=== PATIENT | male | born 1965 | race Caucasian/White ===

== ENCOUNTER 2017-08-28 10:14 | Emergency (ER) | payer SELFPAY ==
[2017-08-28 10:25] VITALS: BMI 31.5
--- NOTE | 2017-08-28 10:31 | DR.MBACK ---
HPI - Time Seen Time seen: 10:27 - PCP Primary Care Physician: SIMI Bowens SERVICE DESK TECHNICIAN - Complaint Chief Complaint Doctors Comments: He states that he poain radiates to the right inguinal area to testes. The claude is right flank. Her denies fever, vomiting or trauma Chief Complaint:: PT C/O RIGHT BACK PAIN FOR THE PAST FEW DAYS THAT IS WORSE TODAY ,,, " REALLY BAD PAIN".. Self Treatment fo Chief Complaint: XANAX, TYLENOL - Source History Provided: Patient - Mode of Arrival Mode of Arrival: Ambulatory - Timing Onset of Chief Complaint: 08/25/17 - Location Back Pain Location: Right, Flank - Associated Signs and Symptoms Back Pain Symptoms: None Numbness: None Weakness: None PMH - PMH Past Medical History: Yes Past Medical History: Diabetes Past Surgical History: Yes Surgical History: Tonsillectomy, Other - Family History History of Family Medical Conditions: Yes Family Medical History: Diabetes Mellitus, Cancer, [place], Coronary Artery Disease, Hypertension - Social History Does patient currently use any type of tobacco product: No Have you used tobacco products in the last 12 months: No Type of Tobacco Use: None Does any household member use tobacco: No Alcohol Use: None Do you use any recreational Drugs:: No Lives With: Family Lives Where: Home - infectious screening In the last 2 months have you had wt loss of >10#?: NO Have you had fever, night sweats or hemotysis?: No Have you traveled outside the country in the last 6 months?: No Isolation: Standard ROS - Review of Systems Eyes: No Symptoms Reported ENTM: No Symptoms Reported Respiratoy: No Symptoms Reported Cardiovascular: No Symptoms Reported Gastrointestinal/Abdominal: No Symptoms Reported Genitourinary: No Symptoms Reported Neurological: No Symptoms Reported Musculoskeletal: Back Pain (right flank) Integumentary: No Symptoms Reported Hematologic/Lymphatic: No Symptoms Reported Endocrine: No Symptoms Reported Psychiatric: No Symptoms Reported All Other Systems: Reviewed and Negative PE - Vital Signs Vitals: Pulse Rate 83 Respiratory Rate 18 Blood Pressure [Right Arm] 171/94 Blood Pressure 110/75 O2 Sat by Pulse Oximetry 95 - General General Appearance: Alert, In No Apparent Distress - Head Head Exam: Normal Inspection, Atraumatic - Eyes Eye exam: Normal Appearance, PERRL, EOMI - ENT ENT Exam: Normal Exam - Chest Chest Inspection: Normal Inspection, Symmetric Chest Wall Rise - Respiratory Respiratory Exam: Normal Lung Sounds Bilat Respiratory Exam: Bilateral Clear to Auscultation - Cardiovascular Cardiovascular Exam: Regular Rate, Normal Rhythm - Abdominal Exam Abdominal Exam: Normal Inspection Abdominal Tenderness: negative: RUQ, RLQ, LUQ, LLQ, Epigastrium, Suprapubic, Diffuse, Mild, Moderate, Severe, Other - Rectal Rectal Exam: Deferred - Genitourinary Exam: Male: Deferred Scrotal Exam: Normal: Bilateral - Extremities Extremities Exam: Normal Inspection, Full ROM - Back Back Exam: Normal Inspection, Full ROM - Neurological Neurological Exam: Alert, Oriented X3, CN II-XII Intact - Psychiatric Psychiatric Exam: Normal Affect Course - Reevaluation 1st: Improved ROR - Labs Reviewed Result Diagrams: 08/28/17 11:25 08/28/17 11:25 Laboratory: WBC 4.9 X10^3/uL (3.6-10.0) 08/28/17 11:25 RBC 4.92 X10^6/uL (4.7-6.0) 08/28/17 11:25 Hgb 15.3 g/dL (13.5-18.0) 08/28/17 11:25 Hct 44.4 % (42.0-54.0) 08/28/17 11:25 MCV 90.2 fL (80.0-100.0) 08/28/17 11:25 MCH 31.2 pg (27.0-34.0) 08/28/17 11:25 MCHC 34.6 g/dL (33.0-35.0) 08/28/17 11:25 RDW 14.3 % (11.6-16.5) 08/28/17 11:25 Plt Count 179 X10^3/uL (150.0-450.0) 08/28/17 11:25 MPV 7.9 fL (7.4-11.0) 08/28/17 11:25 Neut % 44.9 % (42.0-75.0) 08/28/17 11:25 Lymph % 44.3 % (21.0-51.0) 08/28/17 11:25 Louisa % 7.4 % (0.0-13.0) 08/28/17 11:25 Eos % 2.9 % (0.9-2.9) 08/28/17 11:25 Baso % 0.5 % (0.2-1.0) 08/28/17 11:25 Neut # 2.2 x10^3/uL (2.2-4.8) 08/28/17 11:25 Lymph # 2.2 X10^3/uL (1.3-2.9) 08/28/17 11:25 Louisa # 0.4 x10^3/uL (0.3-0.8) 08/28/17 11:25 Eos # 0.1 x10^3/uL (0.0-0.2) 08/28/17 11:25 Baso # 0.0 X10^3/uL (0.0-0.1) 08/28/17 11:25 Absolute Nucleated RBC 0.1 /100WBC 08/28/17 11:25 Sodium 135 mmol/L (136-145) L 08/28/17 11:25 Corrected Sodium 144 mmol/L (136-145) 08/28/17 11:25 Potassium 4.9 mmol/L (3.5-5.1) 08/28/17 11:25 Chloride 99 mmol/L (98-107) 08/28/17 11:25 Carbon Dioxide 28.8 mmol/L (21-32) 08/28/17 11:25 BUN 21 mg/dL (7-18) H 08/28/17 11:25 Creatinine 1.46 mg/dL (0.70-1.30) H 08/28/17 11:25 Est GFR (MDRD) Af Amer > 60 (>60) 08/28/17 11:25 Est GFR (MDRD) Non-Af 53 (>60) L 08/28/17 11:25 Glucose 457 mg/dL (65-99) H 08/28/17 11:25 Calcium 9.3 mg/dL (8.5-10.1) 08/28/17 11:25 C-Reactive Protein 7.10 mg/L (0-3.0) H 08/28/17 11:25 Specimen Type Clean catch urine 08/28/17 11:00 Urine Color Yellow (YELLOW) 08/28/17 11:00 Urine Appearance Hazy (CLEAR) 08/28/17 11:00 Urine pH 5.0 (5.0 - 8.0) 08/28/17 11:00 Ur Specific [place] 1.015 (1.000-1.030) 08/28/17 11:00 Urine Protein 1+ (NEGATIVE) 08/28/17 11:00 Urine Glucose (UA) 4+ (NEGATIVE) 08/28/17 11:00 Urine Ketones Negative (NEGATIVE) 08/28/17 11:00 Urine Occult Blood Negative (NEGATIVE) 08/28/17 11:00 Urine Nitrite Negative (NEGATIVE) 08/28/17 11:00 Urine Bilirubin Negative (NEGATIVE) 08/28/17 11:00 Urine Urobilinogen Normal (NORMAL) 08/28/17 11:00 Ur Leukocyte Esterase Negative (NEGATIVE) 08/28/17 11:00 Urine RBC 0-2 /HPF (NEGATIVE) 08/28/17 11:00 Urine WBC 0-2 /HPF (NEGATIVE) 08/28/17 11:00 Ur Squamous Epith Cells Negative /HPF (NEGATIVE) 08/28/17 11:00 Urine Bacteria Negative /HPF (NEGATIVE) 08/28/17 11:00 Ur Culture Indicated? No/not indicated 08/28/17 11:00 - XRAY XRAY Interpreted by: Radiologist (CT Lumbar: There is degenerative disc disease at L1-L2 with vacuum disc phenomenon present at this level. Posterior central disc protrusion with associated calcification is noted at L5.S1. No evidence for acute fracture or subluxation can be identified. There is a nonobstructing 2mm calculus in the midpole of the right kidney) - Diagnosis Discharge Problem: Right kidney stone, DJD L1L2 - Discharge Plan Condition: Stable - Follow ups/Referrals Follow ups/Referrals: PRADEEP BELCHER [Primary Care Provider] - 3 days - Instructions
[2017-08-28] MEDS ORDERED: MORPHINE SULFATE INJ 4 MG IVP ONE (10:32)
[2017-08-28] MEDS ORDERED: MORPHINE SULFATE INJ 4 MG ONE (10:42)
[2017-08-28] MEDS ORDERED: NS 1000 ML 1,000 ML ONE ×2 (10:42→12:27)
[2017-08-28] MEDS ORDERED: TORADOL 30 MG VIAL ONE (10:47)
[2017-08-28] MEDS ORDERED: TORADOL 30 MG VIAL IVP ONE (10:47)
[2017-08-28] MEDS ORDERED: NS 1000 ML 1,000 ML IV SCH (11:00)
[2017-08-28] MEDS ORDERED: DEMEROL INJ IVP ONE ×2 (11:04→12:58)
[2017-08-28] MEDS ORDERED: DEMEROL INJ ONE ×2 (11:06→13:06)
[2017-08-28 11:09] LABS: BILIRUBIN,URINE NEGATIVE (NEGATIVE); BLOOD/HEMOGLOBIN,URINE NEGATIVE (NEGATIVE); GLUCOSE, URINE 4+ (NEGATIVE); KETONES,URINE NEGATIVE (NEGATIVE); LEUKOCYTE ESTERASE ,URINE NEGATIVE (NEGATIVE); NITRITES,URINE NEGATIVE (NEGATIVE); PROTEIN,URINE 1+ (NEGATIVE); UROBILINOGEN,URINE NORMAL (NORMAL)
[2017-08-28 11:32] LABS: BASOPHILS % (AUTO) 0.5 % (0.2-1.0); EOSINOPHILS # (AUTO) 0.1 x10^3/uL (0.0-0.2); EOSINOPHILS % (AUTO) 2.9 % (0.9-2.9); HEMATOCRIT 44.4 % (42.0-54.0); HEMOGLOBIN 15.3 g/dL (13.5-18.0); LYMPHOCYTES # (AUTO) 2.2 X10^3/uL (1.3-2.9); LYMPHOCYTES % (AUTO) 44.3 % (21.0-51.0); MEAN CORPUSCULAR HEMOGLOBIN 31.2 pg (27.0-34.0); MEAN CORPUSCULAR HGB CONC 34.6 g/dL (33.0-35.0); MEAN CORPUSCULAR VOLUME 90.2 fL (80.0-100.0); MEAN PLATELET VOLUME 7.9 fL (7.4-11.0); MONOCYTES # (AUTO) 0.4 x10^3/uL (0.3-0.8); MONOCYTES % (AUTO) 7.4 % (0.0-13.0); NEUTROPHILS # (AUTO) 2.2 x10^3/uL (2.2-4.8); NEUTROPHILS % (AUTO) 44.9 % (42.0-75.0); PLATELET COUNT 179 X10^3/uL (150.0-450.0); RED BLOOD COUNT 4.92 X10^6/uL (4.7-6.0); RED CELL DISTRIBUTION WIDTH 14.3 % (11.6-16.5); WHITE BLOOD COUNT 4.9 X10^3/uL (3.6-10.0)
[2017-08-28 11:33] LABS: APPEARANCE,URINE HAZY (CLEAR); COLOR,URINE YELLOW (YELLOW); RBC,URINE 0-2 /HPF (NEGATIVE)
[2017-08-28 11:34] LABS: BACTERIA,URINE NEGATIVE /HPF (NEGATIVE); SQUAMOUS EPITHELIAL CELL,UR NEGATIVE /HPF (NEGATIVE)
[2017-08-28 11:35] LABS: BLOOD UREA NITROGEN 21 mg/dL (7-18); CALCIUM 9.3 mg/dL (8.5-10.1); CARBON DIOXIDE 28.8 mmol/L (21-32); CHLORIDE 99 mmol/L (98-107); COR NA(FOR HYPERGLY) 144 mmol/L (136-145); CREATININE 1.46 mg/dL (0.70-1.30); SODIUM 135 mmol/L (136-145); eGFR BLACK RACES > 60 (>60); eGFR NON BLACK RACES 53 (>60)
[2017-08-28] MEDS ORDERED: ZOFRAN INJ 4 MG VIAL IVP ONE (12:25)
[2017-08-28] MEDS ORDERED: ZOFRAN INJ 4 MG VIAL ONE (12:26)
[2017-08-28] MEDS ORDERED: PHENERGAN INJ 25 MG IV ONE (12:59)
[2017-08-28] MEDS ORDERED: NS 1000 ML 1,000 ML IV ONE (13:01)
[2017-08-28] MEDS ORDERED: PHENERGAN INJ 25 MG ONE (13:06)
[2017-08-28 15:01] VITALS: BP 171/94
--- NOTE | 2017-08-28 15:06 | CT ---
HISTORY: Worsening right back pain. Study: CT lumbar spine without contrast. Comparison: None. Technique: Multiple axial images of the lumbar spine were obtained from the thoracolumbar junction t o the sacrum without the administration of IV contrast. Sagittal and coronal reformats were performe d and reviewed. Findings: Alignment of the lumbar spine is maintained. There is degenerative disc disease at L1-L2 with vacuum disc phenomenon present at this level. Posterior central disc protrusion with associated calcificatio n is noted at L5-S1. There are small Schmorl's nodes involving the superior endplates of T12, L1 and L2 as well as the inferior endplate of L1. No evidence for acute fracture or subluxation can be iden tified. No central canal compromise by acute bony fragment or soft tissue components can be identifi ed. No significant facet joint arthropathy can be appreciated. The surrounding paraspinous soft tis sues are normal in their noncontrasted appearance. There is a nonobstructing 2 mm calculus in the mid pole of the right kidney. IMPRESSION: No acute bony abnormality of the lumbar spine. Degenerative changes as above. MRI of the lumbar spine may be of further diagnostic benefit given the reported history of worsening back pain. Tiny nonobstructing right renal calculus. Reported By:
== END 2017-08-28 15:42 | disposition home or self-care (01) ==
LOC: ER 10:28
DX: N20.0 Calculus of kidney (principal); M51.36 Other intervertebral disc degeneration, lumbar region
CPT/HCPCS: 36415; 72131; 80048; 81001; 85025; 86140; 96365; 96367; 96374; 96375; 99283; A4222; J1885; J2175; J2270; J2405; J2550